=== PATIENT | female | born 1955 | race Caucasian/White ===

== ENCOUNTER 2016-05-26 16:31 | Emergency (ER) | payer OTHER ==
[~2016-05-26] VITALS: Ht 162.6 cm; Wt 69.8 kg
[~2016-05-26 16:31] MED LIST: ANAS1TAB19 PO; CALCTAB65 PO; FOLI1TAB8 PO; METH0.4I2 SQ; OMEG10007 PO; [UNRECOGNIZED DRUG - CODE] PO
[2016-05-26 16:39] VITALS: TEMP 37.5; Ht 162.6 cm; Wt 69.8 kg
[2016-05-26] MEDS ORDERED: RANI150T3 PO (17:55)
[2016-05-26] MEDS ORDERED: FENTANYL CITRATE INJ 50 MCG/1 ML 2 ML VIAL IV STA (18:00)
[2016-05-26] MEDS ORDERED: SODIUM CHLORIDE 0.9% 1000ML 1,000 ML IV STA (18:00)
--- NOTE | 2016-05-26 18:03 | EMERGENCY ROOM VISIT NOTE ---
History Report prepared by Tammy: Steff Gomez Under the Supervision of: Dr. Alena Ortiz M.D. First contact with patient: 17:56 Chief Complaint: NECK PAIN Stated Complaint: SWOLLEN NECK - LF SIDE,SENSITIVE TO TOUCH,CHILLS History of Present Illness The patient is a 60 year old female who presents to the Emergency Room with complaints of constant right sided neck swelling beginning this morning. The patient states that she was fine when she woke up and drank water without pain and within 20 minutes it swelled up. She reports that her pain is worsened with eating and swallowing. She notes associated chills and radiating pain into her face. The patient denies any, headache, lightheadedness and weakness. She rates her pain as a 7/10 in severity. Source of History: patient Onset: this morning Position: neck (left) Quality: other (swelling) Timing: constant Modifying Factors (Worsening): eating, other (swallowing) Associated Symptoms: + headache, No weakness Note: She notes associated chills and radiating pain into her face. The patient denies any lightheadedness. Review of Systems See HPI for pertinent positives & negatives. A total of 10 systems reviewed and were otherwise negative. Past Medical & Surgical Medical Problems: (1) Breast cancer Family History Cancer Diabetes mellitus Hypertension Social History Smoking Status: Never Smoker Smokeless Tobacco Use: No Alcohol Use: occasionally Marital Status: Housing Status: lives with significant other Occupation Status: employed Current/Historical Medications Scheduled Amoxicillin & Pot Clavulanate (Augmentin 875-125 mg), 875 MG PO BID Anastrozole (Arimidex), 1 MG PO DAILY Calcium Carbonate-Vitamin D (Calcium 500 + D), 1 TAB PO DAILY Folic Acid (Folvite), 1 MG PO DAILY Methotrexate (Antirheumatic) (Otrexup), 40 MG SQ WK Ranitidine Hcl (Zantac), 1 TAB PO DAILY Scheduled PRN Hydrocodone/Acetaminophen 5MG/325MG ([place] 5MG/325MG), 1 TABLET PO Q6 PRN for Pain Allergies Uncoded Allergies: ENTEX (Allergy, Intermediate, heart palpitations , sob, 11/18/11) Physical Exam Vital Signs Date Time Temp Pulse Resp B/P Pulse Ox O2 Delivery O2 Flow Rate FiO2 05/26/16 19:58 103 18 132/93 96 Room Air 05/26/16 19:04 90 18 138/93 98 Room Air 05/26/16 17:57 94 05/26/16 16:39 37.5 87 18 150/84 97 Room Air Physical Exam Vital signs reviewed. General: Well-appearing, in no significant distress. HEENT: No scleral icterus, PERRLA, swelling and tenderness to submandibular of the left side of the neck, posterior oropharynx is clear, some pain with opening of the mouth. Atraumatic. Cardiovascular: Regular rate and rhythm, no extra sounds. Pulmonary: Clear to auscultation bilaterally, normal work of breathing. Abdomen: Soft, nontender, nondistended, positive bowel sounds. Musculoskeletal: Atraumatic, no peripheral edema. Neurologic: Patient awake alert and oriented x 3, full strength in all 4 extremities. Cranial nerves 2 through 12 grossly intact. Skin: Warm, dry, no rash Medical Decision & Procedures ER Provider Diagnostic Interpretation: CT results as stated below per my review and radiologist interpretation: CT soft tissue neck SOFT TISSUE NECK WITH FINDINGS: Generalized edematous change of the left parotid gland. Mild subcutaneous fat and surrounding fascial plane infiltrative change. This extends to the lateral margin of the left submandibular gland. There is no evidence for abscess or collection. Several small reactive cervical nodes are present. No acute bony abnormalities. No airway compromise. Glottic and subglottic regions are unremarkable. IMPRESSION: 1. Moderate sialoadenitis involving the left parotid gland and to lesser extent peripheral margin left mandibular gland. 2. Mild associated soft tissue cellulitis. 3. No evidence for abscess or collection. Electronically signed by: Meño Humphrey M.D. 05/26/2016 7:25 PM Laboratory Results 05/26/16 17:55 Red Blood Count 4.63, Mean Corpuscular Volume 93.7, Mean Corpuscular Hemoglobin 32.2, Mean Corpuscular Hemoglobin Concent 34.3, Mean Platelet Volume 11.3, Neutrophils (%) (Auto) 69.7, Lymphocytes (%) (Auto) 16.3, Monocytes (%) (Auto) 12.1, Eosinophils (%) (Auto) 1.5, Basophils (%) (Auto) 0.2, Neutrophils # (Auto ) 6.17, Lymphocytes # (Auto) 1.44, Monocytes # (Auto) 1.07, Eosinophils # (Auto ) 0.13, Basophils # (Auto) 0.02 05/26/16 17:55 Test 05/26/16 17:55 White Blood Count 8.85 K/uL (4.8-10.8) Red Blood Count 4.63 M/uL (4.2-5.4) Hemoglobin 14.9 g/dL (12.0-16.0) Hematocrit 43.4 % (37-47) Mean Corpuscular Volume 93.7 fL (80-100) Mean Corpuscular Hemoglobin 32.2 pg (25-34) Mean Corpuscular Hemoglobin Concent 34.3 g/dl (32-36) Platelet Count 235 K/uL (130-400) Mean Platelet Volume 11.3 fL (7.4-10.4) Neutrophils (%) (Auto) 69.7 % Lymphocytes (%) (Auto) 16.3 % Monocytes (%) (Auto) 12.1 % Eosinophils (%) (Auto) 1.5 % Basophils (%) (Auto) 0.2 % Neutrophils # (Auto) 6.17 K/uL (1.4-6.5) Lymphocytes # (Auto) 1.44 K/uL (1.2-3.4) Monocytes # (Auto) 1.07 K/uL (0.11-0.59) Eosinophils # (Auto) 0.13 K/uL (0-0.5) Basophils # (Auto) 0.02 K/uL (0-0.2) RDW Standard Deviation 54.8 fL (36.4-46.3) RDW Coefficient of Variation 16.1 % (11.5-14.5) Immature Granulocyte % (Auto) 0.2 % Immature Granulocyte # (Auto) 0.02 K/uL (0.00-0.02) Anion Gap 7.0 mmol/L (3-11) Est Creatinine Clear Calc Drug Dose 62.9 ml/min Estimated GFR () 80.5 Estimated GFR (Non- 69.5 BUN/Creatinine Ratio 12.9 (10-20) Calcium Level 9.5 mg/dl (8.5-10.1) Total Bilirubin 0.6 mg/dl (0.2-1) Aspartate Amino Transf (AST/SGOT) 18 U/L (15-37) Alanine Aminotransferase (ALT/SGPT) 30 U/L (12-78) Alkaline Phosphatase 90 U/L (45-117) Total Protein 7.5 gm/dl (6.4-8.2) Albumin 4.2 gm/dl (3.4-5.0) Globulin 3.3 gm/dl (2.5-4.0) Albumin/Globulin Ratio 1.3 (0.9-2) Laboratory results per my review. Medications Administered Medications (Trade) Dose Ordered Sig/Sharmin Route Start Time Stop Time Status Last Admin Dose Admin Sodium Chloride (Nss 1000ml) 1,000 ml @ 125 mls/hr Q8H STAT IV 05/26/16 18:00 05/26/16 20:32 DC 05/26/16 18:17 125 MLS/HR Fentanyl Citrate (Fentanyl Inj) 100 mcg NOW STAT IV 05/26/16 18:00 05/26/16 18:03 DC 05/26/16 18:18 25 MCG Amoxicillin/ Clavulanate Potassium (Augmentin Tab) 875 mg ONE ONCE PO 05/26/16 20:00 05/26/16 20:01 DC 05/26/16 19:56 875 MG Acetaminophen/ Hydrocodone Bitart ([place] 5/325mg Home Pack) 1 homepack UD ONCE PO 05/26/16 20:15 05/26/16 20:16 DC 05/26/16 20:15 1 HOMEPACK ED Course 1756: Past medical records reviewed. The patient was evaluated in room C8. A complete history and physical examination was performed. 1800: Fentanyl Inj 100mcg IV, Sodium Chloride 1000 ml @ 125 mls/hr IV. 2000: Augmentin tab 875mg PO. 2002: Upon reevaluation, the patient appeared to have improvement of her symptoms. I discussed findings with the patient. She verbalized agreement of the treatment plan. The patient was discharged home. Medical Decision Differential diagnoses include retropharyngeal abscess, parietitis, sialoadenitis. This patient was evaluated and appeared to be in no significant distress. IV access was obtained and laboratory work was drawn. Patient was hydrated with normal saline solution. CT scan of the neck was performed and is consistent with a sialoadenitis. Patient was placed on Augmentin 875 mg twice daily for 10 days. She was advised to use sour candy to increase salivation. Patient will use ibuprofen as needed for pain and [place] as needed for more severe pain. She was apprised not to drive or to take Tylenol with this medication. Patient was discharged follow-up with her primary care physician and ENT if needed. She will return to the ER for worsening of symptoms or any medical concerns. Impression Primary Impression: Sialoadenitis Scribe Attestation The scribe's documentation has been prepared under my direction and personally reviewed by me in its entirety. I confirm that the note above accurately reflects all work, treatment, procedures, and medical decision making performed by me. Departure Information Dispostion Home / Self-Care Prescriptions Hydrocodone/Acetaminophen 5MG/325MG ([place] 5MG/325MG) Tab 1 TABLET PO Q6 Y for Pain, #20 TAB Prov: Alena Ortiz M.D. 05/26/16 Amoxicillin & Pot Clavulanate (Augmentin 875-125 mg) 1 Tab Tab 875 MG PO BID for 10 Days, TAB Prov: Alena Ortiz M.D. 05/26/16 Referrals Jordyn Liu D.OJaymie (PCP) Forms HOME CARE DOCUMENTATION FORM, IMPORTANT VISIT INFORMATION, WORK / SCHOOL INSTRUCTIONS Patient Instructions A Signature Page, My [facility] Additional Instructions Diagnosis: Sialoadenitis Augmentin 875 mg twice daily for 10 days. Sour candies several times a day to increase salivation. Ibuprofen 600 mg every 6 hours as needed for pain with food. [place] one tablet every 6 hours as needed for more severe pain. Do not drive or take Tylenol with this medication. Follow-up with your physician for reevaluation within the next several days. Return to the ER immediately for fever, worsening of pain, increased swelling or any medical concerns.
[2016-05-26 18:08] LABS: BASO % 0.2 %; BASO ABS # 0.02 K/uL (0-0.2); COMPLETE YES; EOS % 1.5 %; HEMATOCRIT 43.4 % (37-47); IG% 0.2 %; LYMPH % 16.3 %; LYMPH ABS # 1.44 K/uL (1.2-3.4); MEAN CELL VOLUME 93.7 fL (80-100); MEAN CORPUSCULAR HEMOGLOBIN 32.2 pg (25-34); MEAN CORPUSCULAR HGB CONC 34.3 g/dl (32-36); MEAN PLATELET VOLUME 11.3 fL (7.4-10.4); MONO % 12.1 %; NEUT % 69.7 %; PLATELET COUNT 235 K/uL (130-400); RED BLOOD COUNT 4.63 M/uL (4.2-5.4); WHITE BLOOD COUNT 8.85 K/uL (4.8-10.8)
[2016-05-26] MEDS ORDERED: OPTIRAY 320 IV PRN (18:15)
[2016-05-26 18:32] LABS: BUN/CREATININE RATIO 12.9 (10-20); CALCIUM 9.5 mg/dl (8.5-10.1); CREATININE 0.89 mg/dl (0.60-1.20); POTASSIUM 4.1 mmol/L (3.5-5.1)
[2016-05-26 18:35] LABS: ALB/GLOB RATIO 1.3 (0.9-2)
--- NOTE | 2016-05-26 19:27 | DIAGNOSTIC IMAGING REPORT ---
CT soft tissue neck SOFT TISSUE NECK WITH CLINICAL HISTORY: Left neck swelling, tender pain. Edema. TECHNIQUE: Transaxial acquisition with multi axial reformatted images COMPARISON STUDY: None FINDINGS: Generalized edematous change of the left parotid gland. Mild subcutaneous fat and surrounding fascial plane infiltrative change. This extends to the lateral margin of the left submandibular gland. There is no evidence for abscess or collection. Several small reactive cervical nodes are present. No acute bony abnormalities. No airway compromise. Glottic and subglottic regions are unremarkable. IMPRESSION: 1. Moderate sialoadenitis involving the left parotid gland and to lesser extent peripheral margin left mandibular gland. 2. Mild associated soft tissue cellulitis. 3. No evidence for abscess or collection. Electronically signed by: Meño Humphrey M.D. 05/26/2016 7:25 PM
[2016-05-26] MEDS ORDERED: AMOX875T PO (19:49)
[2016-05-26] MEDS ORDERED: HYDR-5688 PO (19:49)
[2016-05-26 19:58] VITALS: BP 132/93; PULSE 103; O2SAT 96
[2016-05-26] MEDS ORDERED: AMOXICILLIN/CLAVULANATE TAB 875 MG TAB PO ONE (20:00)
[2016-05-26] MEDS ORDERED: NORCO 5/325MG HOME PACK PO ONE (20:15)
== END 2016-05-26 20:19 | disposition home or self-care (01) ==
LOC: C.EDB 16:31 → C.EDC 20:19
DX: K11.20 Sialoadenitis, unspecified (principal); Z85.3 Personal history of malignant neoplasm of breast; Z83.3 Family history of diabetes mellitus; Z82.49 Family history of ischemic heart disease and other diseases of the circulatory system

== ENCOUNTER → 2016-08-26 | Outpatient (CLI) | payer OTHER ==
[2015-08-28 13:19] VITALS: BP 103/60; PULSE 84
[~2016-08-26] MED LIST changes: +FOLI1TAB7 PO; -FOLI1TAB8 PO; +HYDR-5688 PO; -OMEG10007 PO; +RANI150T3 PO; -[UNRECOGNIZED DRUG - CODE] PO
[2016-08-26 13:16] VITALS: BP 113/77; PULSE 72; TEMP 36.9; O2SAT 96
--- NOTE | 2016-08-26 14:41 | Radiation Oncology Follow-Up ---
Radiation Oncology Follow-Up Date of Visit Aug 26, 2016. Reason For Visit Annual follow-up Radiation Completion Date 01/19/13 - Hypofractionation Diagnosis (1) Breast cancer Status: Resolved Onset Date: 10/21/2011 Histology Subtype: papillary Permanent Comment: Abnormal left breast mammogram Status post needle localization biopsy revealing papillary carcinoma Estrogen after positive, progesterone receptor positive, HER-2/geovanna negative Status post sentinel lymph node biopsy Pathologic stage pT1a [id number] Status post completion of radiation therapy 01/19/2013 received 5006 cGy utilizing hypo-fractionation Last Edited By: Sahra Nava on Aug 28, 2015 13 :46 Interim History She's been doing well over this past year. She has noticed no changes to her breast. She's noted no masses or tenderness and no change of the axilla. She' s had no swelling of her arm. She has a small amount of telangiectasia. She feels that this has not changed over the past year. She is up-to-date on mammography. This was performed on 01/10/2016. This was negative, no evidence of malignancy. Normal interval follow-up is recommended in 12 months. BI-RADS Category 1. She is on Arimidex and denies side effects. In May of this year she was treated for sialoadenitis. She took antibiotic therapy and this resolved without difficulty. Allergies Uncoded Allergies: ENTEX (Allergy, Intermediate, heart palpitations , sob, 11/18/11) Home Medications Scheduled Anastrozole (Arimidex), 1 MG PO DAILY Calcium Carbonate-Vitamin D (Calcium 500 + D), 1 TAB PO DAILY Folic Acid (Folvite), 1 MG PO DAILY Methotrexate (Antirheumatic) (Otrexup), 40 MG SQ WK Ranitidine Hcl (Zantac), 1 TAB PO DAILY Review of Systems Gastrointestinal: Symptoms: WNL, Constipation GI Comments: Slight constipation - managed with activia Oral: Symptoms: No Problems Respiratory: Symptoms: WNL Urinary: Symptoms: WNL Skin: Symptoms: No Problems Breast: Right Upper Arm Measurement: 26.9 Right Mid Arm Measurement: 21.5 Right Wrist Measurement: 15.5 Left Upper Arm Measurement: 28.2 Left Mid Arm Measurement: 21.6 Left Wrist Measurement: 14.8 Arm Dominence: Right Physical Exam Vital Signs Date Time Temp Pulse Resp B/P Pulse Ox O2 Delivery O2 Flow Rate FiO2 4/4/17 13:16 36.9 72 16 113/77 96 Pain: Pain Location: None Patient Pain Scale: 0 - 10 Initial Pain Intensity: 0.0 Fatigue: None General Appearance: no apparent distress Eyes: normal inspection, EOMI ENT: normal ENT inspection, hearing grossly normal Neck: no adenopathy, thyroid normal Respiratory/Chest: lungs clear, no respiratory distress, no accessory muscle use Breast: Breast examination reveals well-healed incisions of the left breast. There are no masses or tenderness no axillary adenopathy. She has mild telangiectasia in the area of the incision. There are no skin retractions or nipple changes. She has slight edema below the nipple. This is improved compared to last year. Using the [place] score cosmesis she has a good outcome. The right breast showed no masses or tenderness no axillary adenopathy. Cardiovascular: regular rate, rhythm, no gallop, no murmur Abdomen: non tender, soft Extremities: no pedal edema Neurologic/Psychiatric: no motor/sensory deficits, alert, normal mood/affect Skin: warm/dry Lymphatic: no adenopathy Additional Studies Mammography as reviewed above Assessment & Plan Plan: We reviewed her schedule and she did not have follow-up mammography set up. We therefore scheduled a mammogram for after 01/09/2017. Continue follow- up with her primary physician who is now Dr. Jordyn Liu. She is now following with Dr. Jordyn Haji as far as gynecologic examinations. She will now continue follow-up with the above physicians. Follow-up a point with our office was not given. I recommended a breast examination twice yearly. She may call our office if she has any questions or concerns. Total Time In Follow-Up I spent 20 minutes speaking to the patient and performing examination. I spent 15 minutes reviewing information in completing this note. Copy To Jordyn Liu D.O.; Jordyn Haji M.D. Problem Qualifiers (1) Breast cancer: Breast location: lower outer quadrant of breast Patient sex: female Laterality: left Qualified Codes: C50.512 - Malignant neoplasm of lower- outer quadrant of left female breast
== END | disposition home or self-care (01) ==
LOC: C.ONC 13:07
PROVIDERS: ATTEND Physician Assistant Medical
DX: Z08 Encounter for follow-up examination after completed treatment for malignant neoplasm (principal); Z92.3 Personal history of irradiation; Z85.3 Personal history of malignant neoplasm of breast